=== PATIENT | female | born 1995 | race Two or more races ===

== ENCOUNTER 2024-06-04 15:53 | Emergency (ER) | payer MEDICAID, SELFPAY ==
[2024-06-04 16:01] VITALS: BP 119/73; PULSE 69; RESP 16; TEMP 37.1; O2SAT 100
--- NOTE | 2024-06-04 16:08 | EDNOTE_ITS ---
ED General RME/HPI General Chief complaint: Back Pain/Injury Stated complaint: LOWER BACK PAIN Time Seen by Provider: 06/04/24 16:07 Arrival date/time: 06/04/24 15:53 CC: Low back pain HPI patient presents the ER via EMS stating she cannot sit up secondary to low back pain. Patient states she was bent over trimming her toenails, when she could not bend back up secondary back pain patient denies numbness or tingling in her legs, or feet, no saddle anesthesia no bowel or bladder symptoms. No prior history of similar events. Patient states she has a regular menstrual cycles and is currently 2 months late. The patient is sexually active. Localized back pain is a 10 on a 10 scale EMS report having to carry her down from the upper floor secondary to inability to ambulate secondary to low back pain. Related Data Allergies Allergy/AdvReac Type Severity Reaction Status Date / Time No Known Allergies Allergy Verified 06/04/24 16:31 Review of Systems Review of Systems Narrative Review of Systems: GEN: No fever, no chills, no weight loss EYES: No discharge, no visual changes, no pain HEENT: No ear pain, no congestion, no sore throat PULM: No shortness of breath, no cough, no congestion CV: No chest pain, no dyspnea on exertion, no palpitations GI: No nausea, no vomiting, no diarrhea, no pain, no constipation : No frequency, no urgency, no dysuria MUSC/SKEL: No joint pain, + back pain SKIN: No rash PSYCH: No hallucinations, no depression HEME/LYMPH: No easy bleeding or bruising tendencies NEURO: No weakness, no headache ED Exam Narrative Physical exam: [General: Obese in mild discomfort but not in any acute distress Head normocephalic HEENT: Within acceptable limits Neck is supple nontender Chest equal chest rise nontender to palpation Respiratory: Clear to auscultation no wheezes crackles or rubs CV: Rate rhythm is regular no murmurs rubs or clicks Abdomen is distended secondary to body habitus soft nontender no masses positive bowel sounds all 4 quadrants Back: Mild tenderness to the lumbar paraspinal region isolated at lumbar 345 no sacral pain, no thoracic or cervical pain with palpation. Skin: Intact no petechiae rash induration ulceration or crepitus Extremities: Moving all extremity against resistance cap refill less than 2 seconds neurosensory intact Neuro: Awake alert oriented x3 Glascow coma 15 no focal deficits] Course Quality Measures none Orders Category Date Time Status HCG Qualitative,Urine Stat Lab 06/04/24 17:26 Completed Acetaminophen Tab [Tylenol Tab] Med 06/04/24 17:13 Discontinued 650 mg PO X1 ONE Vital Signs Vital signs: Vital Signs Temperature 98.8 F 06/04/24 16:01 Pulse Rate 69 06/04/24 16:01 Respiratory Rate 16 06/04/24 16:01 Blood Pressure 119/73 06/04/24 16:01 Pulse Oximetry (%) 100 06/04/24 16:01 Oxygen Delivery Method Room Air 06/04/24 16:01 [facility] Patient data External records reviewed:: [facility] previous records and EMS form Clinical information provided by:: patient and EMS Social determinants that could affect healthcare access:: none Patient has the following chronic illnesses:: Obesity How is presenting disease/condition affected by chronic disease/condition?: uneffected by Evaluation data The following diagnostics were reviewed and interpreted by me:: lab results Lab and/or radiology exams considered but not ordered:: Patient is positive for Interpretation Summary: Low back strain Medications Medications considered but not ordered:: None Medication administrations:: Medication Administration History Discontinued Medications Acetaminophen (Acetaminophen 325 Mg Tablet) 650 mg PO X1 ONE Stop: 06/04/24 17:14 Last Admin: 06/04/24 18:14 Dose: 650 mg Documented By: None Consultations Consultation(s) initiated? (list below): No Diagnosis Differential Diagnosis ED Complaint MDM: Low back strain low back pain Most likely diagnosis given after review of the tests above:: Low back strain Admission Indicated Admission indicated?: not indicated Explain why admission is indicated or not indicated:: Stable for outpatient follow-up Admission Request Was there a request for admission?: No Disposition Plan Disposition Plan: Discharge Discharge Attestation Discharge Attestation: The patient and all family members were given an opportunity to ask questions and understood the discharge instructions. Discharge instructions specifically effects, indications for sooner follow up or return to the emergency department, and the expected course of current diagnosis. Patient condition: Stable Medical Decision Making Differential Diagnosis Differential Diagnosis: Low back strain low back pain Lab Data Labs: Lab Results 06/04/24 Range/Units 17:26 Urine HCG, Qual Positive Discharge Plan Plan Patient Disposition: HOME (Self Care) Patient condition on transfer: Stable Prescriptions/Referrals Referrals: No Primary/Family,Physician [Primary Care Provider] - In 1 week Angel Reyes MD [Physician] - In 1 week Problem List Clinical Impression: Low back strain, Patient/Caregiver Discharge Instructions Education Materials: Your First Trimester ..., Self-Care for Strains and Sprains Additional Instructions: Please stick to Tylenol for pain, follow-up with your SOCK LINER if there is a worsening of symptoms return the emergency room for reevaluation. Print Language: Urdu Stand Alone Forms: Haley Award Info., Patient Portal Info Letter, Work/School Release PA/CONFIGURATION TECHNICIAN Supervising Physician PA/CONFIGURATION TECHNICIAN Supervising Physician: Fredy Hu ENP
[2024-06-04 16:31] VITALS: PULSE 96; RESP 16; O2SAT 98
[2024-06-04 17:43] LABS: HCG Qualitative,Urine Positive
[2024-06-04] MEDS: ACETAMINOPHEN 325 MG TABLET 650 MG PO (18:14)
== END 2024-06-04 18:47 | disposition home or self-care (01) ==
PROVIDERS: Registered Nurse General Practice; Emergency Provider Emergency Medicine
DX: O9A.219 Injury, poisoning and certain other consequences of external causes complicating pregnancy, unspecified trimester (principal); Z3A.00 Weeks of gestation of pregnancy not specified; S39.012A Strain of muscle, fascia and tendon of lower back, initial encounter; X58.XXXA Exposure to other specified factors, initial encounter
CPT/HCPCS: 81025; 99283; A9270

== ENCOUNTER 2024-06-21 07:12 | Emergency (ER) | payer MEDICAID, SELFPAY ==
[2024-06-21 07:13] VITALS: BMI 34.7
[2024-06-21 07:19] VITALS: BP 124/82; PULSE 80; RESP 18; TEMP 36.6; O2SAT 100
--- NOTE | 2024-06-21 07:34 | XR_ITS ---
Examination: Complete OB ultrasound, less than 14 weeks, transabdominal Date and time of exam: June 21, 2024 0823 hours INDICATIONS: Vaginal bleeding beginning 2 days ago Technique: Obstetrical ultrasound images less than 14 weeks performed via transabdominal imaging Findings: A normal shaped single intrauterine gestation is present in the uterus. pole 3.5 cm corresponds to 10 weeks 3 days gestational age Cardiac motion 160 BPM No subchorionic hemorrhage Ultrasonographic survey of visible and placental structures unremarkable. Amniotic fluid volume appears appropriate for this estimated gestational age. Right ovary 4.0 x 1.9 x 2.2 cm arterial flow Left ovary 3.1 x 1.3 x 2.0 cm arterial flow No fluid in the cul-de-sac IMPRESSION: Viable intrauterine gestation 10 weeks 3 days No subchorionic hemorrhage.
[2024-06-21 08:01] LABS: Basophils % (Auto) 0 % (0-2.5); Eosinophils # (Auto) 0.2 Thou/mm3 (0.0-0.5); Eosinophils % (Auto) 2 % (0-10); Hematocrit 35.4 % (36.0-46.0); Hemoglobin 11.9 g/dL (12.0-16.0); Immature Granulocytes % (Auto) 0 % (0-0); Immature Granulocytes Auto 0.02 Thou/mm3 (0.00-0.00); Lymphocytes # (Auto) 2.4 Thou/mm3 (1.0-4.8); Lymphocytes % (Auto) 24 % (10-50); Mean Corpuscular HGB Conc 33.6 g/dl (31.0-37.0); Mean Corpuscular Hemoglobin 28.1 pg (25.0-35.0); Mean Corpuscular Volume 84 fL (80-100); Monocytes # (Auto) 0.8 Thou/mm3 (0.0-0.8); Monocytes % (Auto) 8 % (0-12); Neutrophils # (Auto) 6.6 Thou/mm3 (1.8-7.7); Neutrophils % (Auto) 65 % (37-80); Nucleated Red Blood Cell % 0 /100 WBC (0); Platelet Count 465 Thou/mm3 (140-440); RDW Standard Deviation 45.6 fL (36.4-46.3); Red Blood Count 4.24 Miln/mm3 (4.00-5.20)
[2024-06-21 08:22] LABS: Alanine Aminotransferase 10 U/L (10-49); Albumin, Serum 4.7 gm/dL (3.5-5.0); Albumin/Globulin Ratio 1.5 (1.2-2.2); Alkaline Phosphatase 47 U/L (46-116); Anion Gap 6 (7-16); Aspartate Amino Transferase < 8 U/L (0-34); BUN/Creatinine Ratio 16 Ratio (12-20); Bilirubin,Total 0.4 mg/dL (0.3-1.2); Blood Urea Nitrogen 8 mg/dL (9-23); Calcium 9.7 mg/dL (8.3-10.6); Calcium (Corrected) 9.7 mg/dL (8.5-10.1); Chloride 103 mMol/L (98-107); Creatinine (Component) 0.5 mg/dL (0.6-1.3); Estimated Creatinine Clearance 177.2 mL/min (>60); Globulin 3.1 gm/dL (2.3-3.5); Glucose 92 mg/dL (74-106); Osmolality,Calculated 266 (275-295); Potassium 4.4 mMol/L (3.4-5.1); Sodium 134 mMol/L (136-145); Total Protein 7.8 gm/dL (5.7-8.2); eGFR > 60 See Note
[2024-06-21 09:00] LABS: Beta HCG,Quantitative 97314 mIU/mL (<5.0)
--- NOTE | 2024-06-21 09:11 | EDNOTE_ITS ---
ED Female Urogenital RME/HPI General Chief complaint: Urogenital-Female Stated complaint: CRAMPS, 12 WKS PREG, PINK DRAINAGE YESTERDAY Time Seen by Provider: 06/21/24 07:15 Arrival date/time: 06/21/24 07:12 28-year-old female approximately 12 weeks presents to the emergency department complains of vaginal spotting since yesterday Limitations: no limitations Related Data Allergies Allergy/AdvReac Type Severity Reaction Status Date / Time No Known Allergies Allergy Verified 06/21/24 07:15 Review of Systems Review of Systems Systems Reviewed: All systems reviewed, normal except as documented Constitutional Constitutional: Reports system reviewed and no additional complaints, except as documented, Denies fever(s) and Denies headache(s) Eyes Eyes: Reports system reviewed and no additional complaints, except as documented and Denies blurry vision ENT Ears, Nose, Mouth, and Throat: Reports system reviewed and no additional complaints, except as documented, Denies headache(s), Denies nasal congestion and Denies nasal discharge Cardiovascular Cardiovascular: Reports system reviewed and no additional complaints, except as documented, Denies chest pain and Denies dyspnea Respiratory Respiratory: Reports system reviewed and no additional complaints, except as documented, Denies chest congestion, Denies cough and Denies dyspnea Gastrointestinal Gastrointestinal: Reports system reviewed and no additional complaints, except as documented and Denies abdominal pain Genitourinary Genitourinary: Reports system reviewed and no additional complaints, except as documented and Reports abnormal vaginal bleeding Integumentary/Breasts Skin/Breast: Reports system reviewed and no additional complaints, except as documented and Denies rash Neurologic Neurologic: Reports system reviewed and no additional complaints, except as documented, Reports as per HPI and Denies headache(s) Past Medical History Past Medical History NEUROLOGIC: Negative Neurological Disorders or Seizures CARDIAC: Negative Cardiac Disorders or Congestive Heart Failure RESPIRATORY: Negative Chronic Obstructive Pulmonary Disease (COPD) or Asthma GASTROINTESTINAL: Negative Gastrointestinal Disorders GENITOURINARY: Positive Genitourinary Disorders and Kidney Stones; Negative Renal Disease REPRODUCTIVE: Positive Previous Pregnancies MUSCULOSKELETAL: Negative Musculoskeletal Disorders ENDOCRINE: Negative Endocrine Disorders, Diabetes Mellitus Type 1 or Diabetes Mellitus Type 2 HEMATOLOGIC: Negative Blood Disorders or Anemia PSYCHO/SOCIAL: Positive Anxiety OTHER HISTORY: Negative Autoimmune Disease, Falls, Blood Transfusions, Blood Transfusion Reaction, Anesthesia Reactions or Cancer Family History FAMILY HISTORY: Positive Family Surgery; Negative Family Psychiatric Problems, Family Respiratory Disorders, Family Cardiac Disorders, Family Gastrointestinal Problems, Family Cancer or Family Anesthesia Reaction Surgical History SURGICAL: Positive Section Social History SMOKING STATUS: Never smoker SECOND HAND EXPOSURE: No ED Exam General Limitations: Present no limitations General appearance: Present alert and in no apparent distress Head Head exam: Present atraumatic Eye Eye exam: Present normal appearance, PERRL and EOMI ENT ENT exam: Present normal exam, normal oropharynx and mucous membranes moist Neck Neck exam: Present normal inspection, full ROM and trachea midline Chest Chest inspection: Present normal inspection and symmetric chest wall rise Respiratory Respiratory exam: Present normal lung sounds bilaterally Cardiovascular Cardiovascular exam: Present regular rate, normal rhythm and normal heart sounds Abdominal Exam Abdominal exam: Present soft and normal bowel sounds; Absent distention, tenderness, guarding, rebound or rigidity Extremities Exam Extremities exam: Present normal inspection and full ROM Back Exam Back exam: Present normal inspection and full ROM Neurological Exam Neurological exam: Present alert, oriented X3 and CN II-XII intact Psychiatric Psychiatric exam: Present normal affect and normal mood Skin Skin exam: Present warm, dry, intact and normal color Course Quality Measures none Orders Category Date Time Status US OB <= 14 weeks fetus Stat Exams 06/21/24 07:34 Completed ABO/RH Type Stat Lab 06/21/24 07:41 Completed Beta HCG,Quantitative Stat Lab 06/21/24 07:41 Completed CBC Stat Lab 06/21/24 07:41 Completed Comprehensive Metabolic Panel Stat Lab 06/21/24 07:41 Completed Vital Signs Vital signs: Vital Signs Temperature 97.9 F 06/21/24 07:19 Pulse Rate 80 06/21/24 07:19 Respiratory Rate 18 06/21/24 07:19 Blood Pressure 124/82 06/21/24 07:19 Pulse Oximetry (%) 100 06/21/24 07:19 Oxygen Delivery Method Room Air 06/21/24 07:19 O2 saturation 100% room air with noise Urogenital - Female MDM Narrative MDM Narrative:: 28-year-old female approximately 12 weeks presents to the emergency department complains of vaginal spotting since yesterday On exam patient well-appearing patient does not appear toxic patient does not appear in acute distress Lab work as well as ultrasound obtained patient appears to have viable at this time Patient discharged home in no distress to follow-up with primary care doctor in the next 24 to 48 hours and for any worsening symptoms to return to the ER immediately Patient data External records reviewed:: [facility] previous records Clinical information provided by:: patient Social determinants that could affect healthcare access:: none Patient has the following chronic illnesses:: None How is presenting disease/condition affected by chronic disease/condition?: no chronic disease Evaluation data The following diagnostics were reviewed and interpreted by me:: lab results and radiology exam(s) Lab and/or radiology exams considered but not ordered:: Labs radiology obtained Interpretation Summary: Reviewed by me Medications / Prescriptions Medications or Prescriptions considered but not ordered:: No meds given Medication administrations:: No meds Given Consultations Consultation(s) initiated? (list below): No Diagnosis Urogenital Female Differential Diagnosis: cystitis and other (Threatened ,missed ) Most likely diagnosis given after review of the tests above:: Vaginal bleeding Admission Indicated Admission indicated?: not indicated Admission Request Was there a request for admission?: No Disposition Plan Disposition Plan: Discharge Discharge Attestation Discharge Attestation: The patient and all family members were given an opportunity to ask questions and understood the discharge instructions. Discharge instructions specifically effects, indications for sooner follow up or return to the emergency department, and the expected course of current diagnosis. Patient condition: Stable Discharge Plan Plan Patient Disposition: HOME (Self Care) Disposition Comment: stable Prescriptions/Referrals Referrals: Brandee Mares CNM [Primary Care Provider] - 06/24/24 Problem List Clinical Impression: Bleeding in early Patient/Caregiver Discharge Instructions Education Materials: Bleeding During Early Additional Instructions: Please follow up with your [employer] WORK[employer] doctor in the next 24-48hrs for any worsening symptoms return here immediately Print Language: Citizen Of [place] Stand Alone Forms: Haley Award Info., Work/School Release, Patient Portal Info Letter HUDSON/LAMONT Supervising Physician ELLY Supervising Physician: Dr. Steiner
== END 2024-06-21 09:32 | disposition home or self-care (01) ==
PROVIDERS: Nurse Practitioner Primary Care; Emergency Provider Emergency Medicine; PCP Advanced Practice Midwife
DX: O20.9 Hemorrhage in early pregnancy, unspecified (principal); Z3A.12 12 weeks gestation of pregnancy
CPT/HCPCS: 36415; 76801; 80053; 84702; 85025; 86900; 86901; 99284

== ENCOUNTER 2025-01-07 05:09 | Inpatient (IN) | payer MEDICAID, SELFPAY ==
[2025-01-07] VITALS (14 sets, daily range): BP systolic 102–131; BP diastolic 62–96; PULSE 73–102; RESP 18–26; TEMP 36.7–36.9; O2SAT 97–100; BMI 39.1
[2025-01-07] MEDS: RINGERS LACTATED 1000 ML 1,000 ML 100 ML IV ×2 (05:51→07:18)
[2025-01-07 06:09] LABS: Basophils # (Auto) 0.0 Thou/mm3 (0.0-0.2); Basophils % (Auto) 0 % (0-2.5); Eosinophils # (Auto) 0.3 Thou/mm3 (0.0-0.5); Eosinophils % (Auto) 4 % (0-10); Hematocrit 36.6 % (36.0-46.0); Hemoglobin 12.4 g/dL (12.0-16.0); Immature Granulocytes Auto 0.04 Thou/mm3 (0.00-0.00); Lymphocytes # (Auto) 2.7 Thou/mm3 (1.0-4.8); Lymphocytes % (Auto) 30 % (10-50); Mean Corpuscular HGB Conc 33.9 g/dl (31.0-37.0); Mean Corpuscular Hemoglobin 30.6 pg (25.0-35.0); Mean Corpuscular Volume 90 fL (80-100); Monocytes # (Auto) 0.8 Thou/mm3 (0.0-0.8); Monocytes % (Auto) 8 % (0-12); Neutrophils # (Auto) 5.3 Thou/mm3 (1.8-7.7); Neutrophils % (Auto) 58 % (37-80); Nucleated Red Blood Cell # 0.00 Thou/mm3 (0.00-0.00); Nucleated Red Blood Cell % 0 /100 WBC (0); Platelet Count 236 Thou/mm3 (140-440); RDW Standard Deviation 48.6 fL (36.4-46.3); Red Blood Count 4.05 Miln/mm3 (4.00-5.20); White Blood Count 9.2 Thou/mm3 (3.6-11.0)
[2025-01-07 06:27] LABS: Alanine Aminotransferase 10 U/L (10-49); Albumin, Serum 3.9 gm/dL (3.5-5.0); Albumin/Globulin Ratio 1.4 (1.2-2.2); Alkaline Phosphatase 154 U/L (46-116); Anion Gap 11 (7-16); Aspartate Amino Transferase 15 U/L (0-34); BUN/Creatinine Ratio 16 Ratio (12-20); Bilirubin,Total 0.3 mg/dL (0.3-1.2); Blood Urea Nitrogen 8 mg/dL (9-23); Calcium 8.8 mg/dL (8.3-10.6); Calcium (Corrected) 8.9 mg/dL (8.5-10.1); Carbon Dioxide 19.9 mMol/L (20.0-31.0); Chloride 110 mMol/L (98-107); Creatinine (Component) 0.5 mg/dL (0.6-1.3); Estimated Creatinine Clearance 187.5 mL/min (>60); Globulin 2.7 gm/dL (2.3-3.5); Glucose 88 mg/dL (74-106); Osmolality,Calculated 278 (275-295); Potassium 3.8 mMol/L (3.4-5.1); Sodium 141 mMol/L (136-145); Total Protein 6.6 gm/dL (5.7-8.2); eGFR > 60 See Note
[2025-01-07 06:45] LABS: Syphilis Nonreactive (Nonreactive)
[2025-01-07] MEDS: ceFAZolin/D5W 2 GM IV 2 GM/100 ML BAG IV (07:20)
[2025-01-07] MEDS: FAMOTIDINE INJ 10 MG/ML VIAL 2 ML 20 MG IV (07:21)
[2025-01-07] MEDS: METOCLOPRAMIDE INJ 5 MG/ML VIAL 2 ML 10 MG IVP (07:21)
--- NOTE | 2025-01-07 07:42 | PD.LDHP ---
Documentation for date of: 01/07/25 OB Labor/Induct. HPI History of Present Illness : 4 Term pregnancies: 2 pregnancies: 0 Living children: 2 History of Abortions: Spontaneous and Elective: 1 History of sections: Yes History of : No Date of last menstrual period: 03/31/25 GEOVANNI: 01/14/25 Gestational age based on last menstrual period: -11 History of present illness: 29-year-old 6 para 3-0-2-3 at 39 weeks dated by 20-week scan is admitted for a repeat low-transverse . Patient has significant history of 3 previous C-sections. course during this however has been uneventful. Patient denies any contractions, leaking, bleeding History of Present Dating criteria: LMP confirmed by 2nd trimester US Labs Labs: Positive: Rubella Titre, Negative: RPR, Hepatitis B, HIV, Chlamydia, Gonorrhea and Group Beta Strep and Unknown: Herpes Type 1, Herpes Type 2 and Covid-19 Narrative: Glucose tolerance test within normal limits Past Medical History Past Medical History NEUROLOGIC: Negative Neurological Disorders or Seizures CARDIAC: Negative Cardiac Disorders or Congestive Heart Failure RESPIRATORY: Negative Chronic Obstructive Pulmonary Disease (COPD) or Asthma GASTROINTESTINAL: Negative Gastrointestinal Disorders GENITOURINARY: Positive Genitourinary Disorders and Kidney Stones; Negative Renal Disease REPRODUCTIVE: Positive Previous Pregnancies MUSCULOSKELETAL: Negative Musculoskeletal Disorders ENDOCRINE: Negative Endocrine Disorders, Diabetes Mellitus Type 1 or Diabetes Mellitus Type 2 HEMATOLOGIC: Negative Blood Disorders or Anemia PSYCHO/SOCIAL: Positive Anxiety OTHER HISTORY: Negative Autoimmune Disease, Falls, Blood Transfusions, Blood Transfusion Reaction, Anesthesia Reactions or Cancer Family History FAMILY HISTORY: Positive Family Surgery; Negative Family Psychiatric Problems, Family Respiratory Disorders, Family Cardiac Disorders, Family Gastrointestinal Problems, Family Cancer or Family Anesthesia Reaction Surgical History SURGICAL: Positive Section Social History SMOKING STATUS: Never smoker SECOND HAND EXPOSURE: No Meds Home Medications and Allergies Home Medications ?Medication ?Instructions ?Recorded ?Confirmed ?Type vit no.95-ferrous 1 tab PO QDAY 01/07/25 01/07/25 History fumarate 28 mg-folic acid 800 mcg tablet () Allergies Allergy/AdvReac Type Severity Reaction Status Date / Time No Known Allergies Allergy Verified 01/07/25 05:41 OB Exam Physical Exam Vital signs: Pulse BP 102 H 124/89 H 01/07/25 05:30 01/07/25 05:30 Constitutional Constitutional: no acute distress Routine HEENT Exam Head: Present normocephalic and atraumatic Eye: Present EOMI and PERRL ENT: Present mucous membranes moist Routine Neck Exam Neck: Present supple and trachea midline Routine Cardiovascular Exam Cardiovascular: Present RRR Routine Abdominal Exam Abdominal: Present soft and normoactive bowel sounds Detailed Labor and Delivery Exam Comments: heart tones category 1 Routine Extremities Exam Extremities: Present full ROM Routine Skin Exam Skin: Present intact, dry and warm Routine Neurological Exam Neurological: Present alert, oriented X3 and CN II-XII intact Routine Psychiatric Exam Psychiatric: Present normal affect and normal thought process OB Results Labs 01/07/25 05:40 01/07/25 05:40 Labs: Short CBC 01/07/25 Range/Units 05:40 WBC 9.2 (3.6-11.0) Thou/mm3 Hgb 12.4 (12.0-16.0) g/dL Hct 36.6 (36.0-46.0) % Plt Count 236 (140-440) Thou/mm3 BMP 01/07/25 05:40 Sodium 141 Potassium 3.8 Chloride 110 H Carbon Dioxide 19.9 L BUN 8 L Creatinine 0.5 L Glucose 88 Calcium 8.8 Liver Function 01/07/25 Range/Units 05:40 Total Bilirubin 0.3 (0.3-1.2) mg/dL AST 15 (0-34) U/L ALT 10 (10-49) U/L Alkaline Phosphatase 154 H (46-116) U/L Albumin 3.9 (3.5-5.0) gm/dL Impressions Impression: 29-year-old 6 para 3-0-2-3 at 39 weeks admitted for repeat low-transverse Placenta posterior, anatomy shows urinary tract dilation of the fetus Prior history of affected by UTD which resolved after NIPT normal GTT normal Hemoglobin 12 OB Assessment & Plan Additional Plan Additional Plan Comment: Repeat low-transverse Antibiotic prophylaxis DVT prophylaxis
[2025-01-07] MEDS: OXYTOCIN in NS 20 units 20 UNIT/1,000 ML BAG 125 UNIT IV ×2 (09:13→17:43)
--- NOTE | 2025-01-07 09:26 | PD.LDDELS ---
Data ([place]) Data Hx Section: Yes : 6 Term: 2 : 0 Livin Abortions: Spontaneous & Theraputic: 1 Delivery Data (San) Labor Data ROM date: 01/07/25 ROM time: 08:06 Amniotic membrane rupture type: Artificial Amniotic fluid description: Clear Delivery Data Onset of labor date: 01/07/25 Onset of labor time: 08:06 Complete dilation date: 01/07/25 Complete dilation time: 08:06 [place] delivery date: 01/07/25 [place] delivery time: 08:06 Placenta delivery date: 01/07/25 Placenta delivery time: 08:07 Stage 1 total time: Labor - Stage 1 Duration 0 minutes Delivered by: Varsha Wheatley Delivery nurse: daniel Gonzalez nurse: laura west Staff Attorney at delivery: No Support person(s) at delivery: FOB Delivery Method Delivery method: Low Transverse Presentation: Vertex Anesthesia Type Anesthesia Type: Spinal Placenta Placenta delivery description: Manual Removal Cord blood sent to lab: Yes cord blood collection: Cord Blood Type EBL Estimated blood loss (ml): 300 [place] Data ([place]) Data order: 1 [place]'s gender: Female Identification band number: [id number] weight (gms): 3520 g Weight (pounds): 7 lbs and 12.2 ozs length: 53.34 cm 1 minute: 9 5 minutes: 9
--- NOTE | 2025-01-07 09:30 | ESOP_ITS ---
Operative Note - [employer] ENGINEER Procedure Date of procedure: 01/07/25 Procedure Performed: repeat low transverse Csection Indication: previous Csection x3 Pre-Op diagnosis: same Post-Op diagnosis: same Anesthesia type: Spinal Procedure description: Informed consent was obtained and the patient was taken to the operating room.? Identity was confirmed by double identifiers and she was placed on the operating table.The abdomen and perineum were prepped in the usual sterile fashion and a Mcneil catheter was placed to continuous drainage.? Sterile drapes were applied.??A Pfannenstiel skin incision was made with a scalpel and carried to the subcutaneous fat up to the rectus fascia.? The rectus fascia was incised on either side of the midline and the incisions were extended bilaterally.? The fascia was gently dissected off the ventral surface of the rectus muscle only superiorly. peritoneum opened after making sure no adhesions are there underneath. bladder flap carefully created, then hysterotomy incision made and extended bluntly with finger. placenta edge was Rupture of membranes revealed clear fluid. The baby was found in cephalic presentation and was delivered via vertex. the umbilical cord , was doubly clamped, divided and the infant was handed over to the waiting team. The placenta delivered by controlled cord traction . The interior of the uterus was now thorougly cleaned of all blood and debris and membranes.?The? hysterotomy was closed using 0 vicryl suture in double layers. Once the repair was completed the hysterotomy was inspected, was noted to be adequately hemostatic.. Then the rectus fascia was repaired using Vicryl 0 in a running fashion.? The subcutaneous layer was now, approximated with 3-0 vicryl in double layers.? All bleeding points were cauterized using the Bovie.?The skin was closed using 4-0 Monocryl in a subcuticular fashion.? The skin was cleaned and a sterile dressing was applied. The patient was now undraped, the abdomen and back were thoroughly cleaned and she was now transferred to the recovery room in a stable condition Estimated blood loss (ml): 300 Surgical staff Operation Date: 01/07/25 07:45 <No data on this case meets the specified criteria> Diagnosis Problem List Completed Was Problem List Reviewed/Reconciled?: Yes
[2025-01-07] MEDS: KETOROLAC INJ 30 MG/ML VIAL IVP ×2 (12:57→20:11)
[2025-01-07 14:15] LABS: Basophils # (Auto) 0.0 Thou/mm3 (0.0-0.2); Basophils % (Auto) 0 % (0-2.5); Eosinophils # (Auto) 0.2 Thou/mm3 (0.0-0.5); Eosinophils % (Auto) 2 % (0-10); Hematocrit 32.8 % (36.0-46.0); Hemoglobin 11.0 g/dL (12.0-16.0); Immature Granulocytes Auto 0.06 Thou/mm3 (0.00-0.00); Lymphocytes # (Auto) 2.4 Thou/mm3 (1.0-4.8); Lymphocytes % (Auto) 19 % (10-50); Mean Corpuscular HGB Conc 33.5 g/dl (31.0-37.0); Mean Corpuscular Hemoglobin 30.4 pg (25.0-35.0); Mean Corpuscular Volume 91 fL (80-100); Monocytes # (Auto) 0.8 Thou/mm3 (0.0-0.8); Monocytes % (Auto) 7 % (0-12); Neutrophils # (Auto) 8.9 Thou/mm3 (1.8-7.7); Neutrophils % (Auto) 72 % (37-80); Nucleated Red Blood Cell # 0.00 Thou/mm3 (0.00-0.00); Nucleated Red Blood Cell % 0 /100 WBC (0); Platelet Count 204 Thou/mm3 (140-440); RDW Standard Deviation 48.8 fL (36.4-46.3); Red Blood Count 3.62 Miln/mm3 (4.00-5.20); White Blood Count 12.4 Thou/mm3 (3.6-11.0)
[2025-01-08 00:15] VITALS: BP 123/81; RESP 17; TEMP 36.9; O2SAT 97
[2025-01-08 04:15] VITALS: BP 116/80; PULSE 102; RESP 17; TEMP 36.9; O2SAT 97
[2025-01-08 07:31] VITALS: BP 124/82; PULSE 97; RESP 19; TEMP 36.7; O2SAT 98
[2025-01-08] MEDS: IBUPROFEN TAB 400 MG TABLET 800 MG PO ×2 (07:50→15:48)
--- NOTE | 2025-01-08 07:52 | PD.LDPPPRG ---
Subjective Subjective Interval history: Patient is doing well denies any nausea vomiting fever or pain. Patient has been eating drinking fine and tolerating general diet. Denies any vaginal bleeding. Bowel and bladder normal Exam Vital Signs Temp Pulse Resp BP Pulse Ox O2 Del Method 98.4 F 102 H 17 116/80 97 Room Air 01/08/25 04:15 01/08/25 04:15 01/08/25 04:15 01/08/25 04:15 01/08/25 04:15 01/08/25 04:15 Constitutional Constitutional: no acute distress Routine HEENT Exam Head: Present normocephalic and atraumatic Eye: Present EOMI and PERRL ENT: Present mucous membranes moist Routine Neck Exam Neck: Present supple and trachea midline Routine Respiratory Exam Respiratory: Present chest non-tender, lungs clear, normal breath sounds and no resp distress Routine Cardiovascular Exam Cardiovascular: Present RRR Routine Abdominal Exam Abdominal: Present soft and normoactive bowel sounds Routine Extremities Exam Extremities: Present full ROM Routine Skin Exam Skin: Present intact, dry and warm Routine Neurological Exam Neurological: Present alert, oriented X3 and CN II-XII intact Routine Psychiatric Exam Psychiatric: Present normal affect and normal thought process Objective Labs 01/07/25 13:55 01/07/25 05:40 Labs: Laboratory Results - last 24 hr 01/07/25 01/07/25 05:40 13:55 WBC 12.4 H RBC 3.62 L Hgb 11.0 L Hct 32.8 L MCV 91 MCH 30.4 MCHC 33.5 RDW Std Deviation 48.8 H Plt Count 204 D Neut % (Auto) 72 Lymph % (Auto) 19 [place] % (Auto) 7 Eos % (Auto) 2 Baso % (Auto) 0 Neut # (Auto) 8.9 H Lymph # (Auto) 2.4 [place] # (Auto) 0.8 Eos # (Auto) 0.2 Baso # (Auto) 0.0 Immature Gran # (Auto) 0.06 H Absolute Nucleated RBC 0.00 Immature Gran % 1 H Nucleated RBC % 0 Blood Type A Positive Antibody Screen NEGATIVE Blood Bank Wristband ID Yes Assessment & Plan Assessment Comment Assessment comment: 29-year-old para 4 status post repeat low-transverse , postop day 1 Vital signs stable Hemoglobin 11 Plan Comment Plan Comment: Patient doing well anticipating discharge tomorrow Time Spent With Patient Time: Total time spent is greater than 50% in coordination of care (as documented) at patient's floor/unit and/or counseling patient:
[2025-01-08 08:30] LABS: Basophils # (Auto) 0.0 Thou/mm3 (0.0-0.2); Basophils % (Auto) 0 % (0-2.5); Eosinophils # (Auto) 0.4 Thou/mm3 (0.0-0.5); Eosinophils % (Auto) 4 % (0-10); Hematocrit 32.1 % (36.0-46.0); Hemoglobin 10.7 g/dL (12.0-16.0); Immature Granulocytes Auto 0.05 Thou/mm3 (0.00-0.00); Lymphocytes # (Auto) 1.8 Thou/mm3 (1.0-4.8); Lymphocytes % (Auto) 16 % (10-50); Mean Corpuscular HGB Conc 33.3 g/dl (31.0-37.0); Mean Corpuscular Hemoglobin 30.7 pg (25.0-35.0); Mean Corpuscular Volume 92 fL (80-100); Monocytes # (Auto) 0.9 Thou/mm3 (0.0-0.8); Monocytes % (Auto) 8 % (0-12); Neutrophils # (Auto) 8.0 Thou/mm3 (1.8-7.7); Neutrophils % (Auto) 71 % (37-80); Nucleated Red Blood Cell # 0.00 Thou/mm3 (0.00-0.00); Nucleated Red Blood Cell % 0 /100 WBC (0); Platelet Count 209 Thou/mm3 (140-440); RDW Standard Deviation 49.4 fL (36.4-46.3); Red Blood Count 3.49 Miln/mm3 (4.00-5.20); White Blood Count 11.1 Thou/mm3 (3.6-11.0)
[2025-01-08 15:58] VITALS: BP 120/78; PULSE 82; RESP 16; TEMP 36.7; O2SAT 99
[2025-01-08 19:20] VITALS: BP 107/74; PULSE 93; RESP 16; TEMP 37.3; O2SAT 99
[2025-01-08] MEDS: Milk Of Magnesia Susp 30 ML UDC PO (23:33)
[2025-01-09] MEDS: IBUPROFEN TAB 400 MG TABLET 800 MG PO ×2 (00:29→12:05)
[2025-01-09 03:15] VITALS: BP 177/77; PULSE 85; RESP 16; TEMP 36.7; O2SAT 98
[2025-01-09 07:18] VITALS: BP 114/75; PULSE 85; RESP 20; TEMP 36.6; O2SAT 99
--- NOTE | 2025-01-09 12:45 | PD.LDPPPRG ---
Subjective Subjective Interval history: Patient denies any problem or complaint. She is voiding and ambulating and tolerating a regular diet. She is passing flatus. She denies any excessive vaginal bleeding. She denies any chest pain palpitation shortness of breath or lower extremity pain. Exam Vital Signs Temp Pulse Resp BP Pulse Ox O2 Del Method 97.9 F 85 20 114/75 99 Room Air 01/09/25 07:18 01/09/25 07:18 01/09/25 07:18 01/09/25 07:18 01/09/25 07:18 01/09/25 07:18 Routine Respiratory Exam Comments: Clear to auscultation bilaterally Routine Cardiovascular Exam Comments: Regular rate and rhythm Routine Abdominal Exam Comments: Incision clear and intact, fundus is firm, nondistended. Routine Extremities Exam Comments: Nontender Objective Labs 01/08/25 07:36 01/07/25 05:40 Impressions Impression: Postop day #2 status post delivery Discharge home Discharge instructions given Follow-up with primary OB in 1 week. Assessment & Plan Time Spent With Patient Time: Total time spent is greater than 50% in coordination of care (as documented) at patient's floor/unit and/or counseling patient:
--- NOTE | 2025-01-09 12:48 | PD.LDDS ---
DS: Providers Provider Date of admission: 01/07/25 05:09 Primary care physician: Physician No Primary/Family Admitting Provider: Varsha Wheatley MD Attending Provider on Admission: Michel Flores MD Consults: 01/07/25 07:45 Referral Routine Comment: Attending Provider on DC: Michel Flores MD Discharging Provider: Michel Flores MD DS: Diagnosis Problem List Completed Was Problem List Reviewed/Reconciled?: Yes Summary/Hosp Course Brief History: 29-year-old 6 para 3-0-2-3 at 39 weeks dated by 20-week scan is admitted for a repeat low-transverse . Patient has significant history of 3 previous C-sections. course during this however has been uneventful. Patient denies any contractions, leaking, bleeding Peripartum Data Delivery Method: Low Transverse Procedures: Procedures Operation Date: 01/07/25 07:45 Actual Procedure Side Surgeon p in OB Not Applicable Varsha Wheatley MD Time Spent with Patient Time attestation: Total time spent providing and/or coordinating discharge services: Exam Vital Signs Temp Pulse Resp BP Pulse Ox O2 Del Method 97.9 F 85 20 114/75 99 Room Air 01/09/25 07:18 01/09/25 07:18 01/09/25 07:18 01/09/25 07:18 01/09/25 07:18 01/09/25 07:18 Discharge Plan Plan Patient Disposition: HOME (Self Care) Patient condition on transfer: Stable Prescriptions/Referrals Prescriptions/Med Rec: New hydrocodone-acetaminophen 5-325 mg tablet 1 tab PO Q6H MDD 4 PRN (Reason: pain) Qty: 20 0RF ibuprofen 600 mg tablet 600 mg PO Q6H PRN (Reason: pain) Qty: 30 0RF No Action PNV no.95-ferrous fumarate-FA [] 28 mg iron- 800 mcg tablet 1 tab PO QDAY Referrals: No Primary/Family,Physician [Primary Care Provider] - Patient/Caregiver Discharge Instructions Discharge Activity: activity as tolerated Other Discharge Activity Instructions:: Follow up office 1 week with Primary OB provider. Education Materials: : Caring for Yourself, C Section Dc Print Language: Bulgarian Activity Restrictions/Additional Instructions: FOLLOW UP IN 1 WEEK Stand Alone Forms: [facility]aley Award Info., Patient Portal Info Letter Discharge Order Discharge Orders: Discharge (Routine); Ordered 01/09/25 Ordered By: Michel Flores Planned Discharge Date 01/09/25
== END 2025-01-09 13:15 | disposition home or self-care (01) | DRG 540 ==
LOC: S4SX 07:17 → S4NX 08:09
PROVIDERS: Obstetrics & Gynecology; Admitting Provider Student in an Organized Health Care Education/Training Program; Visit Provider Specialist
PROC: 10D00Z1 Extraction of Products of Conception, Low, Open Approach (ICD-10-PCS; CPT 59514; principal; 2025-01-07 07:30)
DX: O34.211 Maternal care for low transverse scar from previous cesarean delivery (principal); Z37.0 Single live birth; Z3A.39 39 weeks gestation of pregnancy
CPT/HCPCS: 36415; 80053; 85025; 86780; 86850; 86900; 86901; A4314; A4649; J0689; J1885; J2274; J2371; J2590; J2765; J3010; J3490; J7120; A9270; J2270